=== PATIENT | female | born 1965 | race Caucasian/White ===

== ENCOUNTER 2016-09-05 21:39 | Emergency (ER) | payer BC, OTHER ==
[2016-09-05 21:54] VITALS: BP 117/71
--- NOTE | 2016-09-05 22:56 | UC ---
Hand/Wrist HPI - HPI Summary HPI Summary: 51 yo female fell of horse about 7 pm c/o right wrist>right rib >left middle finger pain no head or neck injury no abd pain - History Of Current Complaint Chief Complaint: UCTrauma Stated Complaint: RT WRIST INJURY Time Seen by Provider: 09/05/16 22:04 Hx Obtained From: Patient Onset/Duration: Sudden Onset, Lasting Hours Severity Initially: Moderate Severity Currently: Moderate Pain Intensity: 4 Pain Scale Used: 0-10 Numeric Character Of Pain: Aching, Throbbing Aggravating Factor(s): Movement Alleviating: Elevation Associated Signs And Symptoms: Positive: Swelling Related History: Dominant Hand Right - Allergies/Home Medications Allergies/Adverse Reactions: Allergies Allergy/AdvReac Type Severity Reaction Status Date / Time No Known Allergies Allergy Verified 09/05/16 21:43 Home Medications: Home Medications Biotin [Biotin Maximum Strength] 1,000 mcg PO DAILY 09/05/16 [History Confirmed 09/05/16] Cholecalciferol TAB* [Vitamin D TAB*] 1,000 unit PO DAILY 09/05/16 [History Confirmed 09/05/16] Probiotic Product [Probiotic Daily] 1 cap PO DAILY 09/05/16 [History Confirmed 09/05/16] PMH/Surg Hx/FS Hx/Imm Hx Previously Healthy: Yes - Surgical History Surgical History: Yes Surgery Procedure, Year, and Place: tubal, tubal reversal, left hand surgery - Family History Known Family History: Positive: Hypertension - Social History Alcohol Use: Daily Alcohol Amount: 6 cans of beer Substance Use Type: None Smoking Status (MU): Never Smoked Tobacco Review of Systems Constitutional: Negative Skin: Negative Eyes: Negative ENT: Negative Respiratory: Negative Cardiovascular: Chest Pain Gastrointestinal: Negative Genitourinary: Negative Motor: Negative Neurovascular: Negative Musculoskeletal: Arthralgia Neurological: Negative Psychological: Negative All Other Systems Reviewed And Are Negative: Yes Physical Exam Triage Information Reviewed: Yes Appearance: Well-Appearing, No Pain Distress, Well-Nourished Vital Signs: Initial Vital Signs Temp 98.3 F 09/05/16 21:46 Pulse 72 09/05/16 21:46 Resp 16 09/05/16 21:46 BP 117/71 09/05/16 21:46 Pulse Ox 96 09/05/16 21:46 Vital Signs Reviewed: Yes Eyes: Positive: Conjunctiva Clear ENT: Positive: Hearing grossly normal. Negative: Nasal congestion, Nasal drainage, Trismus, Muffled/hoarse voice Neck: Positive: Supple, Nontender, No Lymphadenopathy Respiratory: Positive: Lungs clear, Normal breath sounds, No respiratory distress. Negative: Chest non-tender Cardiovascular: Positive: RRR Abdomen Description: Positive: Nontender, No Organomegaly Musculoskeletal: Positive: Other: - see image Neurological: Positive: Alert Psychological Exam: Normal Skin Exam: Normal Procedures - Splinting Location: right wrist Hand-Made Type: orthoglass Splint: sugar-tong Pre-Proc Neuro Vasc Exam: normal Post-Proc Neuro Vasc Exam: normal Hand/Wrist Course/Dx - Course Course Of Treatment: pt refused rib xrays, patient refused left middle finger films, patient refused transfer to ER for emergent ortho consultation. Despite her having been drinking tonight she understood that her wrist injury was significant and that I felt it would require surgery. I showed her xrays and explained the findings. She states that she will seek care first thing in the morning - Differential Dx/Diagnosis Provider Diagnoses: right wrist fracture /comminuted, intrarticular radius fracture with displacement. right rib fractures clinically. possible left middle finger fracture Discharge - Discharge Plan Condition: Stable Disposition: HOME Patient Education Materials: Wrist Fracture in Adults (ED), Rib Fracture (ED) Referrals: Brett Pickett MD [Medical Doctor] - Additional Instructions: you have a bad wrist fracture I think it will need surgery call Dr. Pickett in AM if unable to get seen call me I will be here in the morning [phone] In addition to the wrist fractures you probably have rib fractures and you may have fractured your left middle finger Images Head: 1 - abrasion Hands: 1 - swolle/tender, distal sensation intact Front/Back of Body, Lg (Drew): 1 - tender/right lat ribs
--- NOTE | 2016-09-06 07:43 | RAD ---
INDICATION: Wrist pain after falling from a horse COMPARISON: None. TECHNIQUE: 3 views right wrist. REPORT: There is a comminuted impacted fracture involving the distal right radius. The distal fracture fragment is displaced in the radial and volar direction. The remaining visualized bones appear to be intact and appropriately aligned. IMPRESSION: Comminuted, impacted fracture of the right distal radius.
== END 2016-09-05 22:58 | disposition home or self-care (01) ==
LOC: UCCORT 21:39
DX: S52.501A Unspecified fracture of the lower end of right radius, initial encounter for closed fracture (principal); S22.31XA Fracture of one rib, right side, initial encounter for closed fracture; V80.010A Animal-rider injured by fall from or being thrown from horse in noncollision accident, initial encounter; Y93.52 Activity, horseback riding; Y92.9 Unspecified place or not applicable
CPT/HCPCS: 99202; G0463

== ENCOUNTER → 2016-09-06 14:50 | Emergency (ER) | payer OTHER ==
[2016-09-06 14:57] VITALS: BP 127/62
--- NOTE | 2016-09-06 17:42 | RAD ---
Indication: Head injury, fell off horse. CT of the brain was performed without IV contrast. Ventricular structures are midline. No midline shift is noted. The extraction spaces are unremarkable. There is no evidence of intracranial mass or hemorrhage. No other high or low density lesions are identified. Mastoid air cells and paranasal sinuses are unremarkable. IMPRESSION: No intracranial mass or hemorrhage is noted.
--- NOTE | 2016-09-06 17:56 | ED ---
Head Injury - HPI Summary HPI Summary: 51F presents with nausea this morning that has resolved. She states she is here for concussion evaluation to get cleared for surgery on Sunday. She is having surgery on Sunday for her right wrist. She does not know if she lost consciousness or not. She does not know if she had a head injury or not. This may be due to ETOH or to the injury. She denies any headache, dizziness, difficulty concentrating, vomiting, light sensitivity, or visual changes. She states her only pain is in her ribs and right wrist. She is not on any blood thinners. - History Of Current Complaint Chief Complaint: EDHeadInjury Stated Complaint: HEAD INJURY Time Seen by Provider: 09/06/16 17:11 Pain Intensity: 0 - Allergies/Home Medications Allergies/Adverse Reactions: Allergies Allergy/AdvReac Type Severity Reaction Status Date / Time No Known Allergies Allergy Verified 09/05/16 21:43 PMH/Surg Hx/FS Hx/Imm Hx Endocrine/Hematology History: Denies: Hx Anticoagulant Therapy Respiratory History: Denies: Hx Asthma - Surgical History Surgery Procedure, Year, and Place: tubal, tubal reversal, left hand surgery Infectious Disease History: No Infectious Disease History: Denies: Traveled Outside the [place] in Last 30 Days - Family History Known Family History: Positive: Hypertension - Social History Alcohol Use: Occasionally Alcohol Amount: 6 cans of beer Substance Use Type: Reports: None Smoking Status (MU): Never Smoked Tobacco Review of Systems Negative: Fever Negative: Chest Pain Negative: Shortness Of Breath Positive: Nausea Positive: Myalgia - right wrist All Other Systems Reviewed And Are Negative: Yes Physical Exam Triage Information Reviewed: Yes Vital Signs On Initial Exam: Initial Vitals Temp Pulse Resp BP Pulse Ox 97.2 F 78 16 127/62 100 09/06/16 14:54 09/06/16 14:54 09/06/16 14:54 09/06/16 14:54 09/06/16 14:54 Vital Signs Reviewed: Yes Appearance: Positive: Well-Appearing Skin: Positive: Warm, Dry Head/Face: Positive: Normal Head/Face Inspection, Other - no step off, racoon eyes, weber sign Eyes: Positive: Normal, EOMI, AHMET, Conjunctiva Clear ENT: Positive: Normal ENT inspection, Pharynx normal, TMs normal Respiratory/Lung Sounds: Positive: Clear to Auscultation, Breath Sounds Present Cardiovascular: Positive: Normal, RRR Neurological: Positive: Sensory/Motor Intact, Alert, Oriented to Person Place, Time, CN Intact II-III, Heel to Toe, Finger to Nose - Rolando Coma Scale Best Eye Response: 4 - Spontaneous Best Motor Response: 6 - Obeys Commands Best Verbal Response: 5 - Oriented Diagnostics - Vital Signs Vital Signs Temp Pulse Resp BP Pulse Ox 09/06/16 14:54 97.2 F 78 16 127/62 100 - Laboratory Lab Statement: Any lab studies that have been ordered have been reviewed, and results considered in the medical decision making process. - CT brain CT Interpretation: No Acute Changes CT Interpretation Completed By: Radiologist Head Injury Course/Dx Course Of Treatment: 51F presents with nausea this morning that has resolved. She states she is here for concussion evaluation to get cleared for surgery on Sunday. She is having surgery on Sunday for her right wrist. She does not know if she lost consciousness or not. She does not know if she had a head injury or not. This may be due to ETOH or to the injury. She denies any concussion symptoms besides nausea. Normal neuro exam. CT normal. spoke with dr jean and explained that can not definitively say that she has or does not have a concussion due to not knowing if hit head and therefore if the nausea is related to head injury or not. instructed patient to follow up with primary. patient understands and agrees with plan - Diagnoses Differential Diagnosis/HQI/PQRI: Concussion Without LOC, Contusion, Intracranial Bleed Provider Diagnoses: Head injury Discharge - Discharge Plan Condition: Good Disposition: HOME Referrals: Speedy Padron MD [Primary Care Provider] - Nasima Fairbanks MD [Medical Doctor] - Additional Instructions: Follow up with primary tomorrow Take Tylenol for pain Return to ED if develop severe headache, vomiting, or any new or worsening symptoms
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
== END | disposition home or self-care (01) ==
LOC: ED 14:50
DX: S09.90XA Unspecified injury of head, initial encounter (principal); X58.XXXA Exposure to other specified factors, initial encounter; Y92.9 Unspecified place or not applicable
CPT/HCPCS: 70450; 99281

== ENCOUNTER 2016-09-12 13:17 | Day surgery (SDC) | payer OTHER ==
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
[~2016-09-12 13:17] MED LIST: Acetaminophen TAB* 325 MG PO PRN; DiMENhydriNATE IV* 50 MG/ML VIAL IV PUSH PRN; HYDROcodone/ACETAMIN 5-325 MG* 1 TAB PO PRN; HYDROmorphone* 1 MG/ML 1 ML SYR IV PRN; Ondansetron INJ* 2 MG/ML VIAL IV PRN; fentaNYL* 50 MCG/ML 2 ML VIAL (100 MCG VIAL) IV PRN
[2016-09-12] MEDS ORDERED: Buffered Lidocaine 0.9% SYRIN* 5 ML/SYR SYRINGE ONE (13:37)
[2016-09-12] MEDS ORDERED: ceFAZolin 2 GM PREMIX(*) 2 GM/50 ML BAG IVPB ONE (13:37)
[2016-09-12] MEDS: Buffered Lidocaine 0.9% SYRIN* 5 ML/SYR SYRINGE INTRADERM ONE ×2 (13:40→14:08)
[2016-09-12] MEDS ORDERED: Midazolam* 1 MG/ML 2 ML VIAL (2 MG) ONE (13:53)
[2016-09-12] MEDS ORDERED: fentaNYL* 50 MCG/ML 2 ML VIAL (100 MCG VIAL) ONE ×3 (13:53→15:47)
[2016-09-12] MEDS ORDERED: Famotidine IV* 10 MG/ML 2 ML (20 mg) ONE (14:15)
[2016-09-12] MEDS ORDERED: Bupivacaine 0.5% SDV PF* 30 ML VIAL ONE ×2 (14:18→14:30)
[2016-09-12] MEDS ORDERED: Ketorolac INJ* 30 MG/ML 1 ML VIAL ONE (14:41)
[2016-09-12] MEDS ORDERED: Dexamethasone IV* 4 MG/ML 1 ML (4 MG) ONE (14:41)
[2016-09-12] MEDS ORDERED: Ondansetron INJ* 2 MG/ML VIAL ONE (14:41)
[2016-09-12] MEDS ORDERED: Lidocaine 2% PF * 5 ML VIAL ONE (14:41)
[2016-09-12] MEDS ORDERED: Propofol* 10 MG/ML 20 ML BTL IV PUSH ONE (14:41)
[2016-09-12] MEDS ORDERED: HYDROcodone/ACETAMIN 5-325 MG* 1 TAB ONE (15:58)
[2016-09-12 16:31] VITALS: BP 128/72
--- NOTE | 2016-09-13 12:43 | RAD ---
INDICATION: Procedural fluoroscopy RIGHT wrist. COMPARISON: September 05, 2016 TECHNIQUE: 1 minute 13 seconds Fluoroscopy. FINDINGS: Spot images document a volar cortical plate bridging the comminuted fracture of the distal radius. Marked improvement in alignment compared with the preoperative exam. IMPRESSION: Procedural fluoroscopy. CPT II Codes: 6045F
--- NOTE | 2016-09-14 01:46 | OP ---
DATE OF OPERATION: 09/12/16 [facility] DATE OF : 61 SURGEON: Nasima Fairbanks MD DECK BUILDER: MAULIK Hatrmann ANESTHESIOLOGIST: Dr. Vera ANESTHESIA: General. PRE-OP DIAGNOSIS: Comminuted intraarticular fracture of the right distal radius. POST-OP DIAGNOSIS: Comminuted intraarticular fracture of the right distal radius. OPERATIVE PROCEDURE: Open reduction internal fixation of the right distal radius. ESTIMATED BLOOD LOSS: Zero. TOURNIQUET TIME: About 40 minutes. INDICATION FOR PROCEDURE: Mary Carmen is a 51-year-old female, who fell off her horse injuring her right wrist. She has a very comminuted displaced intraarticular fracture of the distal radius. She presents for ORIF. DESCRIPTION OF PROCEDURE: The patient was brought to the operating room, given a general anesthetic, and placed in the supine position on the operating table with the tourniquet around her right upper arm. Skin of her right upper extremity was prepped and draped in the usual sterile fashion. Hand and forearm were exsanguinated and the tourniquet elevated to 250 mmHg. A longitudinal incision was made overlying the FCR tendon. We dissected sharply through the FCR tendon sheath, superficial and deep and then subperiosteally dissected the pronator quadratus off of the distal radius. There was a large fragment on the volar aspect with 90 degrees of displacement. The fracture fragments were reduced with traction and manipulation and then a plate from the 2.4 variable angle [employer]ynthes distal radius set was secured with 3 proximal and 5 distal screws. The position of the hardware and fracture fragments were checked on the C-arm in the AP and lateral views and found to be satisfactory. Multiple intraarticular fragments were secured with the distal screws, more than 3 fragments. The wound was irrigated. The flexor carpi radialis tendon sheath was repaired with 2-0 Polysorb suture. The skin edges were reapproximated with 4-0 nylon suture. The wound was dressed with Xeroform, 4x4 , Webril, and a volar splint in flexion. The patient tolerated the procedure well, was awakened from general anesthesia, and brought to the recovery room in good condition. [id number]/[facility] #: [id number] [facility]ENT[facility]ose Marie
== END 2016-09-12 16:35 | disposition home or self-care (01) ==
LOC: OREAST 13:17
PROVIDERS: ATTEND Orthopaedic Surgery
DX: S52.571A Other intraarticular fracture of lower end of right radius, initial encounter for closed fracture (principal); V80.010A Animal-rider injured by fall from or being thrown from horse in noncollision accident, initial encounter; Y93.52 Activity, horseback riding; Y92.89 Other specified places as the place of occurrence of the external cause
CPT/HCPCS: 76000; C1713; C1776; J0690; J1100; J1885; J2250; J2405; J2704; J3010